=== PATIENT | female | born 1965 | race Caucasian/White ===

== ENCOUNTER → 2018-03-08 | Outpatient (CLI) | payer OTHER ==
--- NOTE | 2018-03-08 19:44 | CT ---
CT scan of the right ankle. History preop ankle fracture. Comparison none. TECHNIQUE: Multiple axial sections were obtained from the distal tibia to the bottom of the calcaneus with no co ntrast. FINDINGS: There is a vertical fracture through the distal tibia extending to the ankle joint. The fracture plan e is coronal. There is separation of the fragments almost 10 mm. There is comminution. There is no di slocation. The talus is intact. Calcaneus is intact. Subtalar joint appears normal. Fracture line als o extends into the medial malleolus. There is soft tissue swelling around the ankle. IMPRESSION: Comminuted vertical fracture in the coronal plane through the distal tibia. Mild separation of the fr agments. No other fracture seen. The fracture fragment displacement appears slightly worse than the c omparison plain film exam of 03/04/2018 through the splint.
== END | disposition home or self-care (01) ==
LOC: RADCTMAIN 18:54
PROVIDERS: ATTEND Orthopaedic Surgery
DX: S82.251A Displaced comminuted fracture of shaft of right tibia, initial encounter for closed fracture (principal)

== ENCOUNTER 2018-03-11 13:04 | Day surgery (SDC) | payer OTHER ==
[2018-03-11] MEDS ORDERED: LIDOCAINE 1% 20 ML VIAL (10MG/ML) FOR IV START INTRADERMA ONE (13:36)
[2018-03-11] MEDS ORDERED: LACTATED RINGERS 1,000 ML IV ONE ×2 (13:36→18:10)
[2018-03-11] MEDS ORDERED: DEXAMETHASONE SOD PHOS (MDV) 100 MG/10 ML VIAL IVP ONE (13:37)
[2018-03-11] MEDS ORDERED: ONDANSETRON 4 MG/2 ML VIAL IVP ONE ×2 (13:37→18:59)
[2018-03-11] MEDS: MIDAZOLAM 2 MG/2 ML VIAL IVP ONE ×2 (13:43→15:47)
[2018-03-11] MEDS ORDERED: VECURONIUM 10 MG VIAL IV ONE (16:06)
[2018-03-11] MEDS ORDERED: LIDOCAINE 1% INJ 10MG/ML (20 ML MDV) ONE (16:06)
[2018-03-11] MEDS ORDERED: SUCCINYLCHOLINE CHLORIDE 100 MG/5 ML SYR IV ONE (16:06)
[2018-03-11] MEDS ORDERED: GLYCOPYRROLATE 0.2 MG/ML 2 ML VIAL ONE (16:06)
[2018-03-11] MEDS ORDERED: MIDAZOLAM 2 MG/2 ML VIAL ONE (16:06)
[2018-03-11] MEDS ORDERED: fentaNYL (PF) 50 MCG/ML 2 ML AMP ONE (16:06)
[2018-03-11] MEDS ORDERED: HYDROmorphone (PF) 1 MG/ML ONE (16:06)
[2018-03-11] MEDS ORDERED: NEOSTIGMINE 1 MG/ML 10 ML VIAL ONE (16:06)
[2018-03-11] MEDS ORDERED: LABETALOL 5 MG/ML VIAL MDV ONE (16:06)
[2018-03-11] MEDS ORDERED: PROPOFOL 10 MG/ML 20 ML VIAL IV ONE (16:06)
[2018-03-11] MEDS ORDERED: SODIUM CHLORIDE 0.9% 50 ML with ceFAZolin 2,000 MG IV ONE ×2 (16:11)
[2018-03-11] MEDS ORDERED: HYDROmorphone 1 MG/ML 1 ML SYRINGE IVP ONE ×3 (18:59→19:19)
[2018-03-11] MEDS ORDERED: MEPERIDINE 50 MG/ML SYRINGE IVP ONE (19:07)
--- NOTE | 2018-03-11 19:20 | P.OP ---
Date of Procedure: 03/11/18 Preoperative Diagnosis: 1. Right distal tibial pilon fracture Postoperative Diagnosis: Same Procedure(s) Performed: Open reduction and internal fixation of right distal tibial pilon fracture Anesthesia: RANDI Surgeon: John Alvarado Metalizing Machine Operator #1: Rosibel Canseco Metalizing Machine Operator #2: Janelle Pham Estimated Blood Loss (ml): 10 IV fluids (ml): 850 Pathology: none sent Condition: stable Disposition: PACU Indications for Procedure: The patient is a previously healthy 52-year-old female who sustained a right distal tibia fracture on vacation in [facility] over a week ago. She returned home and was seen in our office. Her x-rays showed a distal tibia fracture. She was sent for a computed tomography scan and placed in a bulky Fortune splint. The computed tomography scan showed a displaced anterior plafond distal tibia fracture. My recommendation was to perform an open reduction and internal fixation to reduce the joint surface. My recommendation was to perform surgery through a true anterior incision so if the patient develops post traumatic arthritis the same incision could be used for a total ankle replacement or fusion. We also discussed using a medial incision to open the fracture and help with the reduction. We discussed the potential risks and complications of surgery including but not limited to risk of anesthesia, risk of superficial infection, risk of deep infection, risk of delayed wound healing , risk of superficial wound necrosis, risk of damage to local blood vessels or nerves, risk of fracture nonunion, risk of fracture malunion, risk of intraoperative fracture, risk of postoperative fracture, risk of posttraumatic arthritis, risk of symptomatically hardware, risk of chronic pain, risk of chronic swelling, inability to regain preinjury level of function, generalized to satisfaction with surgery, DVT, PE, and other medical complications, and possibly loss of life or limb. The patient and her voiced her understanding of the potential for developing posttraumatic arthritis. They provided their verbal and written consent to go forward with surgery. Description of Procedure: The patient was identified in preoperative holding and the correct right leg was marked with my initials. I reviewed the consent form with the patient and all of her questions were answered. A popliteal and saphenous nerve block was placed by anesthesia. The patient was then brought back to the operating room. She was positioned on the OR table and a general anesthetic and preoperative antibiotics were administered. All bony prominences were well-padded. A tourniquet was applied to the proximal aspect of the right thigh. The left leg was secured to the table with foam and tape. The right leg was then prepped and draped in the standard sterile fashion. Prior to starting surgery timeout was performed identifying the correct patient, operative extremity, and procedure. The patient's leg was then elevated, exsanguinated with an Esmarch bandage, and the tourniquet was inflated to 250 mmHg. I began by outlining incisions with a skin marker. A straight anterior incision was made directly over the anterior aspect of the ankle and a medial incision was made taking care to make a 5 cm skin bridge. The anterior incision was utilized first and a skin incision was made with a 15 blade scalpel. Dissection was carried down carefully through the subcutaneous tissue with tenotomy scissors. The superficial peroneal nerve was identified and carefully retracted. The extensor retinaculum was incised. I developed the interval between the tibialis anterior and the EHL tendon. The neurovascular bundle was carefully retracted laterally. Crossing veins were controlled with electrocautery. The ankle joint capsule was sharply opened and there was a large hemarthrosis. Attention was then turned medially. Skin incision was made with a scalpel and dissection was carried down carefully through subcutaneous tissue with tenotomy scissors. The fracture site was visible anteromedially extending down to the medial shoulder of the ankle joint. The fracture site was gently booked open and a pituitary rongeur was used to remove free osteoarticular fragments. Using a large [id number] reduction clamp 1 lino was placed over the anterior plafond and fragment and the second lino was placed through the medial incision over the posterior medial border of the tibia so a perpendicular vector would be created across the fracture. The reduction clamp was gently tightened. On inspection to the medial wound the fracture appeared to be anatomically reduced both at the level of the ankle joint and at the apex of the fracture. Fluoroscopy was brought in and on the lateral view the joint surface appeared to be nearly anatomic. A precontoured anterolateral plate was then selected. A medium Winters elevator was used to create a path up the anterolateral border of the tibia. The plate was then gently slid percutaneously up the anterolateral face of the tibia. Once the plate was in acceptable position it was pinned distally. A stab incision was made proximally in the drill bit was placed in the most proximal hole. A fully threaded 3.5 mm screw was placed proximally bringing the plate down to bone. I then proceeded to place 2 lag screws distally to the central 2 holes of the plate. A combination of a 3.5 and 2.5 mm drill bit was used and fully threaded 3.5 mm screws were placed generating excellent compression across the fracture. The jcodb-al-coxol reduction clamp was removed and the reduction held. I then placed two 3.5 locking screws in the remaining distal holes of the plate. I then proceeded to place an additional two 3.5 nonlocking screws proximally through stab incisions. Final fluoroscopic images were taken including an AP of the ankle which showed no displacement or step-offs of the medial malleolus and an anatomically reduced ankle joint. A true lateral of the ankle showed a reduced anterior plafond fracture with minimal step-off at the tibiotalar joint. The ankle joint was then irrigated. The capsule was closed with a running 0 Vicryl stitch. The extensor retinaculum was closed with a running 0 Vicryl stitch. The deep subcu was reapproximated with 2-0 Vicryl. The skin was closed using 3-0 nylon Allgower modification of the Donati stitch. The proximal stab incisions were closed with 3-0 nylon horizontal mattress stitches. The medial incision was closed in layers with 2-0 Vicryl in the subcu and 3-0 nylon horizontal mattress stitches and the skin. I verified that all instrument, sponge, and sharp counts were correct. A sterile dressing consisting of brown quarter inch stretchy Steri-Strips, Betadine soaked Adaptic , 4 x 4, and web roll was applied. The drapes were taken down and a well- padded bulky Fortune splint was placed with the ankle at neutral. I verified that all instrument, sponge, and sharp counts were correct. The patient was then awoken from her anesthetic, transferred from the OR table to a gurney, and brought to PACU having count the procedure well. Rosibel Canseco NP and Janelle SCHAFFER required a skilled assistance for patient positioning, surgical exposure, retraction, reduction of fracture, placement of hardware, closure of wounds, and application of splint. Plan: The patient is going to be admitted for pain control and postoperative antibiotics. She will receive Lovenox while in-house for DVT prophylaxis. She is to remain strictly nonweightbearing on her operative extremity. She'll be nonweightbearing for 10-12 weeks due to the intra-articular nature of her fracture. She can discharge home when her pain is controlled and she passes physical therapy.
[2018-03-11] MEDS ORDERED: DIAZEPAM 5 MG TAB PO PRN ×2 (19:23)
[2018-03-11] MEDS ORDERED: NA PHOS,M-B/NA PHOS,DI-BA 133 ML ENEMA RECTAL PRN (19:23)
[2018-03-11] MEDS ORDERED: HYDROmorphone 0.5 MG/0.5 ML SYRINGE IVP PRN ×3 (19:23)
[2018-03-11] MEDS ORDERED: ONDANSETRON 4 MG/2 ML VIAL IVP PRN (19:23)
[2018-03-11] MEDS ORDERED: NALOXONE 0.4 MG/ML 1 ML VIAL IV PRN (19:23)
[2018-03-11] MEDS ORDERED: MAGNESIUM HYDROXIDE 2,400 MG/10 ML CUP PO PRN (19:23)
[2018-03-11] MEDS ORDERED: BISACODYL 10 MG SUPP RECTAL PRN (19:23)
[2018-03-11] MEDS ORDERED: HYDROcodone/APAP 10-325MG 1 EACH TAB PO PRN ×2 (19:23)
[2018-03-11 19:32] VITALS: RESP 16
[2018-03-11] MEDS ORDERED: MIDAZOLAM 2 MG/2 ML VIAL IVP ONE ×2 (19:41)
[2018-03-11] MEDS ORDERED: SENNOSIDES-DOCUSATE SODIUM 1 EACH TAB PO SCH (21:00)
[2018-03-11] MEDS: hydrOXYzine PAMOATE 25 MG CAP PO PRN (22:39)
--- NOTE | 2018-03-11 23:16 | XR ---
Limited right ankle HISTORY: Open reduction internal fixation 6 intraoperative images document the procedure
--- NOTE | 2018-03-11 23:19 | FL ---
Fluoroscopy HISTORY: Fracture 1 minute 53 seconds fluoroscopy time supplied to the referring clinician. 6 intraoperative C-arm heike ges document the procedure. See dictated report from orthopedic surgery.
[2018-03-12] MEDS: SODIUM CHLORIDE 0.9% 1,000 ML IV SCH ×2 (00:09→12:25)
[2018-03-12] MEDS: ceFAZolin IN SWFI 2 GM/20 ML SYRINGE IVP SCH ×2 (00:09→07:35)
[2018-03-12 02:29] VITALS: BMI 28.8
[2018-03-12 05:54] VITALS: BP 151/86; PULSE 85; TEMP 97.8
[2018-03-12] MEDS: hydrOXYzine PAMOATE 25 MG CAP PO PRN ×2 (06:10→10:30)
[2018-03-12 08:04] LABS: Basophils # (A) 0.1 k/uL (0-0.2); Basophils % (A) 1 %; Eosinophils % (A) 0 %; HCT 39.2 % (34.0-46.0); HGB 13.1 gm/dL (11.4-16.0); Lymphocytes % (A) 9 %; MCH 30.6 pg (25.0-35.0); MCHC 33.3 g/dL (31.0-37.0); MCV 91.9 fL (80.0-100.0); Mean Platelet Volume 7.6; Monocytes # (A) 0.8 k/uL (0-1.0); Monocytes % (A) 8 %; Neutrophils # (A) 8.7 k/uL (1.3-7.7); Neutrophils % (A) 81 %; Platelet Count 329 k/uL (150-450); RBC 4.27 m/uL (3.80-5.40); WBC 10.7 k/uL (3.8-10.6)
[2018-03-12] MEDS ORDERED: oxyCODONE-APAP 5-325MG 1 EACH TAB PO PRN (08:53)
[2018-03-12] MEDS ORDERED: ENOXAPARIN 40 MG/0.4 ML SYRINGE SQ SCH (09:00)
--- NOTE | 2018-03-12 10:56 | P.ONQ ---
Anesthesiology Proc Note - PNB - Peripheral Nerve Block Performed Right Popliteal Single Time Out Performed: Yes Procedure Start Time: 14:47 Procedure Stop Time: 14:55 Indication: Acute Post-Operative Pain, Requested by physician Sedation Type: Sedate with meaningful contact maintained Preparation: Sterile Prep Needle Size: 50mm (2") Needle Gauge: 21 Technique: Ultrasound Injectate: 0.5% Ropivacaine (see comment for volume) (ropi .5% 30cc) Blood Aspirated: No Pain Paresthesia on Injection Noted: No Resistance on Injection: Normal Events: Uneventful and Well Tolerated
--- NOTE | 2018-03-12 11:08 | P.DS ---
Providers Date of admission: 03/11/2018 Expected date of discharge: 03/12/18 Attending physician: John Alvarado Primary care physician: Stated None Hospital Course: The patient was admitted yesterday and underwent operative fixation of a distal tibia fracture. She was given a popliteal nerve block for pain. She was admitted overnight for pain control and IV antibiotics. On postoperative day 2 she was doing well and had pain as expected in the right ankle. On exam she had a clean-appearing bulky Fortune splint and her foot was neurovascularly intact. There was no pain with passive range of motion of the toes. She denied chest pain, shortness of breath, nausea, or vomiting. She states that she was up with physical therapy and did well. She anticipates going home later this afternoon. She can discharge home when her pain is controlled with oral pain medications and she passes physical therapy. Patient Condition at Discharge: Stable Plan - Discharge Summary Discharge Rx Participant: Yes New Discharge Prescriptions: New Aspirin 325 mg PO BID #28 tab HYDROcodone/APAP 10-325MG [Oatman 10-325] 1 - 2 tab PO Q4-6H PRN #45 tab PRN Reason: Pain Sennosides [Senokot] 1 tab PO BID #60 tablet oxyCODONE-APAP 5-325MG [Percocet 5-325 mg] 1 tab PO Q6HR PRN #10 tab PRN Reason: Pain Discharge Medication List Aspirin 325 mg PO BID #28 tab 03/12/18 [Rx] HYDROcodone/APAP 10-325MG [Oatman 10-325] 1 - 2 tab PO Q4-6H PRN #45 tab [Rx] Sennosides [Senokot] 1 tab PO BID #60 tablet 03/12/18 [Rx] oxyCODONE-APAP 5-325MG [Percocet 5-325 mg] 1 tab PO Q6HR PRN #10 tab 03/12/18 [ Rx] Follow up Appointment(s)/Referral(s): John Alvarado MD [Medical Doctor] - 10 Days Patient Instructions/Handouts: ORIF of an Ankle Fracture (DC) Activity/Diet/Wound Care/Special Instructions: Strictly nonweightbearing to right lower extremity using a knee scooter. Keep splint clean, dry and intact. Rest and elevate the right lower extremity. Please take medications as prescribed. Please use Percocet for the first 1-2 days if needed, and Oatman only after that. Please follow-up with [facility] in 10 days. Call with any questions or concerns [phone]. Discharge Disposition: HOME SELF-CARE
--- NOTE | 2018-03-12 11:11 | P.PN ---
Subjective Progress Note Date: 03/12/18 The patient did well overnight and denies any chest pain or shortness of breath this morning. Her pain is controlled with Percocet. She has some discomfort but nothing out of control. She was up with therapy this morning and says she did well. Objective - Vital Signs Vital signs: Vital Signs Temp 97.8 F 03/12/18 05:54 Pulse 85 03/12/18 05:54 Resp 16 03/12/18 05:54 BP 151/86 03/12/18 05:54 Pulse Ox 95 03/12/18 05:54 Intake & Output 03/11/18 03/12/18 03/12/18 18:59 06:59 18:59 Intake Total 2100 Output Total 10 Balance 2089 Weight 90.718 kg 86.183 kg Intake: IV 2100 Output: Estimated Blood Loss 10 Other: Voiding Method Bedpan # Voids 1 - Exam A focused examination of the right lower extremity was conducted. On inspection there is a clean-appearing bulky Fortune splint. There is no bleeding or drainage. The tips of the toes are warm and well perfused with brisk capillary refill. Sensation is intact to light touch at the tips of the toes. There is no pain with passive range of motion of the toes. - Labs CBC & Chem 7: 03/12/18 06:55 Labs: Abnormal Lab Results - Last 24 Hours (Table) 03/12/18 Range/Units 06:55 WBC 10.7 H (3.8-10.6) k/uL Neutrophils # 8.7 H (1.3-7.7) k/uL Assessment and Plan (1) Pilon fracture of right tibia Current Visit: Yes Status: Acute Code(s): S82.871A - DISPLACED PILON FRACTURE OF RIGHT TIBIA, INIT FOR CLOS FX SNOMED Code(s): 013884233 Plan: Postoperative day #1 status post open reduction and internal fixation of a right distal tibia fracture. 1. Strict nonweightbearing right lower extremity, ice and elevate 2. 2 doses of postoperative antibiotics 3. DVT prophylaxis with Lovenox in-house, home on aspirin 325 mg twice a day 4. Physical therapy for gait training and mobilization 5. Bone health labs pending 6. Anticipate discharge home later this afternoon if pain is controlled oral pain medications and the patient passes physical therapy
[2018-03-12] MEDS ORDERED: ACETAMINOPHEN TAB 325 MG TAB PO PRN (11:39)
== END 2018-03-12 15:49 | disposition home or self-care (01) ==
LOC: OR 13:04 → 5MS5E 18:51 → OR 03-12 15:49
PROVIDERS: ATTEND Orthopaedic Surgery
DX: S82.871A Displaced pilon fracture of right tibia, initial encounter for closed fracture (principal); X58.XXXA Exposure to other specified factors, initial encounter; Y93.11 Activity, swimming; Y92.34 Swimming pool (public) as the place of occurrence of the external cause; K21.9 Gastro-esophageal reflux disease without esophagitis; Z79.891 Long term (current) use of opiate analgesic; Z79.899 Other long term (current) drug therapy
CPT/HCPCS: 97161; 85025; 82306; 73600; 27827; 64450; C1713; J2250; J2710; J2175; J2405; J2001; J1650; J3010; J1170 ×2; J0690 ×2; J1100; J0330; J2704

== ENCOUNTER 2019-03-01 07:27 | Day surgery (SDC) | payer OTHER ==
[2019-02-27 09:43] VITALS: BMI 29.7
--- NOTE | 2019-02-28 22:12 | P.GSHP ---
History of Present Illness H&P Date: 03/01/19 CHIEF COMPLAINT: Colon screen HISTORY OF PRESENT ILLNESS: The patient is a 53-year-old female who presents for colon screen. Lower endoscopy was offered for further evaluation and management. PAST MEDICAL HISTORY: Please see list. PAST SURGICAL HISTORY: Please see list. MEDICATIONS: Please see list. ALLERGIES: Please see list. SOCIAL HISTORY: No illicit drug use FAMILY HISTORY: No reports of Crohn disease or ulcerative colitis. REVIEW OF ORGAN SYSTEMS: CONSTITUTIONAL: No reports of fevers or chills. PHYSICAL EXAM: VITAL SIGNS: Stable GENERAL: Well-developed pleasant in no acute distress. HEENT: No scleral icterus. Extraocular movements grossly intact. Moist buccal mucosa. NECK: Supple without lymphadenopathy. CHEST: Unlabored respirations. Equal bilateral excursions. CARDIOVASCULAR: Regular rate and rhythm. Distal 2+ pulses. ABDOMEN: Soft, nontender, nondistended. MUSCULOSKELETAL: No clubbing, cyanosis, or edema. ASSESSMENT: 1. Colon screen. PLAN: 1. Recommend proceeding with a lower endoscopy Past Medical History Past Medical History: No Reported History Additional Past Medical History / Comment(s): constipation History of Any Multi-Drug Resistant Organisms: None Reported Past Surgical History: Orthopedic Surgery Additional Past Surgical History / Comment(s): vaginal sling 2002, rt ankle surgery with plate Past Anesthesia/Blood Transfusion Reactions: No Reported Reaction Smoking Status: Never smoker - Past Family History Father Family Medical History: Liver Disease Additional Family Medical History / Comment(s): CROHNS, LIVER DISEASE. 05/2017 Mother Family Medical History: No Reported History Sister(s) Family Medical History: Cancer Additional Family Medical History / Comment(s): BREAST CANCER Medications and Allergies Home Medications Medication Instructions Recorded Confirmed Type Cholecalciferol (Vitamin D3) 5,000 unit PO DAILY 02/27/19 02/27/19 History [Vitamin D3] Constipation Med (Unknown Dose 1 dose PO DAILY 02/27/19 02/27/19 History Allergies Allergy/AdvReac Type Severity Reaction Status Date / Time No Known Allergies Allergy Verified 02/27/19 09:33
[~2019-03-01 07:27] MED LIST: LACTATED RINGERS 1,000 ML IV SCH; LIDOCAINE 1% 20 ML VIAL (10MG/ML) FOR IV START INTRADERMA PRN
[2019-03-01 07:51] VITALS: TEMP 97.3
[2019-03-01] MEDS ORDERED: LIDOCAINE 1% INJ 10MG/ML (20 ML MDV) ONE (08:02)
[2019-03-01] MEDS ORDERED: PROPOFOL 10 MG/ML 20 ML VIAL IV ONE (08:02)
--- NOTE | 2019-03-01 08:37 | P.PCN ---
Date of Procedure: 03/01/19 Description of Procedure: PREOPERATIVE DIAGNOSIS: Colonoscopy screening. POSTOPERATIVE DIAGNOSIS: Colonoscopy screening. OPERATION: Colonoscopy to the ileocecal valve and appendiceal orifice. SURGEON: Melissa Gutiérrez MD. ANESTHESIA: MAC. INDICATIONS: The patient is a 53-year-old female who presents for first colonoscopy screening. Benefits and risks were described and informed consent was obtained. DESCRIPTION OF PROCEDURE: The patient had undergone Suprep. Separately she reports difficulty with her prep. She had been brought into the operating room and laid in the left lateral decubitus position. After adequate intravenous sedation, the rectum was examined with 2% lidocaine jelly. External hemorrhoids were encountered. The rectal tone was within normal limits. No lesions were palpated in the rectal vault. An Olympus colonoscope was advanced until the ileocecal valve and appendiceal orifice were clearly viewed. The prep was suboptimal limiting complete visualization of each mucosal fold. No scattered diverticulosis was encountered. No large colonic polyps were found. No evidence of focal colitis was found. Retroflexion of the scope demonstrated grade 1 internal hemorrhoids without active bleeding or inflammation. The colon was desufflated. The patient had tolerated the procedure well. Withdrawal time was over 6 minutes. FINDINGS: Aronchick preparation quality scale 4 (1-5) Internal hemorrhoids, grade 1 External prolapsed hemorrhoids. No arteriovenous malformations. No adenomatous polyps. No focal colitis. No scattered diverticulosis RECOMMENDATIONS: Lower endoscopy in 5 years, 2023 Plan - Discharge Summary Discharge Rx Participant: No New Discharge Prescriptions: No Action Constipation Med (Unknown Dose 1 dose PO DAILY Cholecalciferol (Vitamin D3) [Vitamin D3] 5,000 unit PO DAILY Eszopiclone [Lunesta] 3 mg PO HS PRN PRN Reason: Insomnia Linaclotide [Linzess] 290 mcg PO DAILY Discharge Medication List Cholecalciferol (Vitamin D3) [Vitamin D3] 5,000 unit PO DAILY 02/27/19 [History] Constipation Med (Unknown Dose 1 dose PO DAILY 02/27/19 [History] Eszopiclone [Lunesta] 3 mg PO HS PRN 03/01/19 [History] Linaclotide [Linzess] 290 mcg PO DAILY 03/01/19 [History] Follow up Appointment(s)/Referral(s): Melissa Gutiérrez MD [STAFF PHYSICIAN] - 03/21/19 Patient Instructions/Handouts: *Surgery [facility] - (Anesthesia) Endoscopy Discharge Instructions, Colonoscopy (DC), Constipation (DC) Activity/Diet/Wound Care/Special Instructions: Follow-up colonoscopy in 5 years, 2023. Prep subpar. Recommend drinking 80 to 100 ounces of fluid/water daily. Discharge Disposition: HOME SELF-CARE
[2019-03-01 08:38] VITALS: RESP 16
[2019-03-01 09:00] VITALS: BP 120/70; PULSE 67
== END 2019-03-01 09:28 | disposition home or self-care (01) ==
LOC: ORWHC2ENDO 07:27
PROVIDERS: ATTEND Surgery Plastic and Reconstructive Surgery
DX: Z12.11 Encounter for screening for malignant neoplasm of colon (principal); K59.00 Constipation, unspecified; Z80.3 Family history of malignant neoplasm of breast; K64.4 Residual hemorrhoidal skin tags; K64.8 Other hemorrhoids
CPT/HCPCS: G0121; J2001; J2704; 45378

== ENCOUNTER → 2019-05-01 | Outpatient (CLI) | payer OTHER ==
--- NOTE | 2019-05-01 17:38 | ECHOF ---
Referral Reason:R55 syncope and collapse, R09.89 other specified s MEASUREMENTS -------- HEIGHT: 172.7 cm WEIGHT: 84.4 kg BP: 129/62 RVIDd: 2.5 cm (< 3.3) IVSd: 1.2 cm (0.6 - 1.1) LVIDd: 4.0 cm (3.9 - 5.3) LVPWd: 1.2 cm (0.6 - 1.1) IVSs: 1.5 cm LVIDs: 2.5 cm LVPWs: 1.7 cm LA Diam: 3.1 cm (2.7 - 3.8) LAESV Index (A-L): 20.84 ml/m Ao Diam: 2.7 cm (2.0 - 3.7) AV Cusp: 1.6 cm (1.5 - 2.6) EPSS: 0.3 cm MV E Desean: 1.06 m/s MV DecT: 259 ms MV A Desean: 0.86 m/s MV E/A Ratio: 1.23 RAP: 5.00 mmHg RVSP: 22.75 mmHg MV EF SLOPE: 70.26 mm/s (70 - 150) MV EXCURSION: 1.44 cm (> 18.000) FINDINGS -------- Sinus rhythm. This was a technically adequate study. The left ventricular size is normal. There is borderline concentric left ventricular hypertrophy. Overall left ventricular systolic function is normal with, an EF between 60 - 65 %. The right ventricle is normal in size. Left atrium is normal size by volume. The right atrium is normal in size and function. Interatrial and interventricular septum intact. The aortic valve is trileaflet and appears structurally normal. There is trace to mild mitral regurgitation. Mild tricuspid regurgitation present. Right ventricular systolic pressure is normal at < 35 mmHg. Trace/mild (physiologic) pulmonic regurgitation. The aortic root size is normal. Normal inferior vena cava with normal inspiratory collapse consistent with estimated right atrial pre ssure of 5 mmHg. There is no pericardial effusion. CONCLUSIONS -------- 1. Sinus rhythm. 2. This was a technically adequate study. 3. The left ventricular size is normal. 4. There is borderline concentric left ventricular hypertrophy. 5. Overall left ventricular systolic function is normal with, an EF between 60 - 65 %. 6. The right ventricle is normal in size. 7. Left atrium is normal size by volume. 8. The right atrium is normal in size and function. 9. Interatrial and interventricular septum intact. 10. The aortic valve is trileaflet and appears structurally normal. 11. There is trace to mild mitral regurgitation. 12. Mild tricuspid regurgitation present. 13. Right ventricular systolic pressure is normal at < 35 mmHg. 14. Trace/mild (physiologic) pulmonic regurgitation. 15. The aortic root size is normal. 16. Normal inferior vena cava with normal inspiratory collapse consistent with estimated right atrial pressure of 5 mmHg. 17. There is no pericardial effusion. SUPERVISOR CARDING: REI Lopez
--- NOTE | 2019-05-01 19:47 | US ---
EXAMINATION TYPE: US carotid duplex BILAT DATE OF EXAM: 05/01/2019 COMPARISON: NONE CLINICAL HISTORY: 53-year-old female R55 syncope and collapse, R09.89 other specified : HTN is newly diagnosed TECHNIQUE: Carotid duplex ultrasound examination. Indirect Doppler criteria was utilized. FINDINGS: EXAM MEASUREMENTS: RIGHT: Peak Systolic Velocity (PSV) cm/sec ----- Right CCA: 79.1 ----- Right ICA: 78.2 ----- Right ECA: 88.9 ICA/CCA ratio: 1.0 RIGHT: End Diastole cm/sec ----- Right CCA: 27.3 ----- Right ICA: 32.8 ----- Right ECA: 15.0 LEFT: Peak Systolic Velocity (PSV) cm/sec ----- Left CCA: 79.8 ----- Left ICA: 86.3 ----- Left ECA: 55.2 ICA/CCA ratio: 1.1 LEFT: End Diastole cm/sec ----- Left CCA: 26.7 ----- Left ICA: 38.3 ----- Left ECA: 0.0 VERTEBRALS (direction of flow): Right Vertebral: Antegrade Left Vertebral: Antegrade Rhythm: Normal Garage Supervisor notes: Mild intimal wall thickening is noted at bilateral carotid bifurcation, and PSV is wnl bilaterally. IMPRESSION: No hemodynamically significant ICA stenosis on either side. Criteria for Assigning % of Stenosis / Diameter reduction (Estimation based on the indirect measurements of the internal carotid artery velocities (ICA PSV). 1. Normal (no stenosis)=ICA PSV < 125 cm/s: ratio < 2.0: ICA EDV<40 cm/s. 2. Less than 50% stenosis=ICA PSV < 125 cm/s: ratio < 2.0: ICA EDV<40 cm/s. 3. 50 to 69% stenosis=ICA PSV of 125 to 230 cm/s: ration 2.0 ? 4.0: ICA EDV 40-100 cm/s. 4. Greater than 70% stenosis to near occlusion= ICA PSV > 230 cm/s: ratio > 4.0: ICA EDV > 100 cm/s. 5. Near occlusion= ICA PSV velocities may be low or undetectable: variable ratio and ICA EDV. 6. Total occlusion=unable to detect flow.
== END | disposition home or self-care (01) ==
LOC: RADECHMAIN 15:41
PROVIDERS: ATTEND Family Medicine
DX: I07.1 Rheumatic tricuspid insufficiency (principal); R09.89 Other specified symptoms and signs involving the circulatory and respiratory systems
CPT/HCPCS: 93306; 93880

== ENCOUNTER → 2019-08-04 | Outpatient (CLI) | payer OTHER ==
--- NOTE | 2019-08-18 12:27 | MM ---
Reason for exam: screening (asymptomatic). Last mammogram was performed 6 years and 5 months ago. History: Patient had first child at age 31. Family history of breast cancer in sister at age 53. Physical Findings: A clinical breast exam by your physician is recommended on an annual basis and results should be correlated with mammographic findings. MG 3D Screening Mammo W/Cad Bilateral CC and MLO view(s) were taken. Prior study comparison: March 07, 2013, mammogram, performed at [facility]. The breast tissue is heterogeneously dense. This may lower the sensitivity of mammography. No significant changes when compared with prior studies. ASSESSMENT: Benign, BI-RAD 2 RECOMMENDATION: Routine screening mammogram of both breasts in 1 year.
== END | disposition home or self-care (01) ==
LOC: RADMAMWWP 13:07
PROVIDERS: ATTEND Family Medicine
DX: Z12.31 Encounter for screening mammogram for malignant neoplasm of breast (principal)
CPT/HCPCS: 77063; 77067

== ENCOUNTER 2019-12-19 11:23 | Emergency (ER) | payer OTHER ==
[2019-12-19 11:28] VITALS: TEMP 97.9
--- NOTE | 2019-12-19 11:47 | XR ---
EXAMINATION TYPE: XR knee complete LT DATE OF EXAM: 12/19/2019 COMPARISON: NONE HISTORY: 54 year-old female left knee pain TECHNIQUE: 3 views FINDINGS: Extensor mechanism is intact. No knee joint effusion. Mild degenerative spurring in the patellofemora l compartment. No acute fracture, subluxation, or dislocation. IMPRESSION: No acute osseous abnormality seen. Mild degenerative spurring in the patellofemoral compartment.
[2019-12-19] MEDS ORDERED: ACET/COD 300 MG/30 MG STARTER PACK 6 TAB BTL PO STA (11:50)
--- NOTE | 2019-12-19 11:51 | ED ---
Extremity Problem HPI - General Chief complaint: Extremity Problem,Nontraumatic Stated complaint: knee pain Time Seen by Provider: 12/19/19 11:28 Source: patient Mode of arrival: wheelchair Limitations: no limitations - History of Present Illness Initial comments: 54-year-old female presenting today for chief complaint of left knee pain she states has been ongoing for the past 2 weeks. She states she did recently by a puppy and has been walking much more frequently. Patient states today while walking her knee locked up she was unable to walk. Patient denies any falls or direct trauma. Patient has a redness or swelling of the knee. Patient denies any fevers or recent surgical procedures. Patient denies any previous left knee injuries. Patient denies any numbness tingling or loss of sensation posterior knee pain. Patient denies coolness or pallor of the extremity. Patient denies noting any other complaints. Upon arrival patient appears well there is no signs of acute distress. - Related Data Home Medications Medication Instructions Recorded Confirmed Cholecalciferol (Vitamin D3) 5,000 unit PO DAILY 02/27/19 03/01/19 [Vitamin D3] Constipation Med (Unknown Dose 1 dose PO DAILY 02/27/19 02/27/19 Eszopiclone [Lunesta] 3 mg PO HS PRN 03/01/19 03/01/19 Linaclotide [Linzess] 290 mcg PO DAILY 03/01/19 03/01/19 Allergies Allergy/AdvReac Type Severity Reaction Status Date / Time No Known Allergies Allergy Verified 03/01/19 07:46 Review of Systems ROS Statement: Those systems with pertinent positive or pertinent negative responses have been documented in the HPI. ROS Other: All systems not noted in ROS Statement are negative. Past Medical History Past Medical History: No Reported History Additional Past Medical History / Comment(s): constipation History of Any Multi-Drug Resistant Organisms: None Reported Past Surgical History: Orthopedic Surgery Additional Past Surgical History / Comment(s): vaginal sling 2002, rt ankle surgery with plate Past Anesthesia/Blood Transfusion Reactions: No Reported Reaction Past Psychological History: No Psychological Hx Reported Smoking Status: Never smoker Past Alcohol Use History: Occasional Past Drug Use History: None Reported - Past Family History Father Family Medical History: Liver Disease Additional Family Medical History / Comment(s): CROHNS, LIVER DISEASE. 05/2017 Mother Family Medical History: No Reported History Sister(s) Family Medical History: Cancer Additional Family Medical History / Comment(s): BREAST CANCER General Exam - General Exam Comments Initial Comments: General: The patient is awake and alert, in no distress, and does not appear acutely ill. Eye: +3 mm pupils are equal, round and reactive to light, extra-ocular movements are intact. No nystagmus. There is normal conjunctiva bilaterally. No signs of icterus. Musculoskeletal: Normal ROM, at the left and right hips, right knee and ankle, she can range fully but complains of pain at the left knee. Patient has full ROM at the rigth ankle. Extensor mechanism intact. No swelling, no redness no warmth or skin changes of the left knee. Strength 5/5 of the LE b/l distal and proximal to left knee joint. Sensation intact. +2 DP pulses equal bilaterally 2+. Neurological: A&O x 3. CN II-XII intact grossly, There are no obvious motor or sensory deficits. Coordination appears grossly intact. Speech is normal. Skin: Skin is warm and dry and no rashes or lesions are noted. Psychiatric: Cooperative, appropriate mood & affect, normal judgment. Limitations: no limitations Course Vital Signs 12/19/19 12/19/19 12/19/19 11:25 11:27 12:27 Temperature 97.9 F Pulse Rate 71 65 Respiratory 19 18 20 Rate Blood Pressure 133/86 130/81 O2 Sat by Pulse 97 98 Oximetry 12/19/19 12:35 Temperature Pulse Rate 65 Respiratory 20 Rate Blood Pressure 130/81 O2 Sat by Pulse 98 Oximetry Medical Decision Making - Medical Decision Making 54-year-old female presenting for left knee pain. There is no obvious abnormalities noted on gross examination. There is no noted laxity. Patient is neurovascularly intact. There is no injury or direct trauma. There is no sign suggestive of a vascular injury nor infection at this time given physical examination and patient's presenting history. Patient was able to weight-bear and stand at bedside. Patient extensor mechanism intact. Plain films (-). There is no obvious sign of severe ligamentous injury however this cannot be ruled out with plain films. Nor can meniscus injury be ruled out with plain films. I recommend that patient nonweight bear, use a knee immobilizer while ambulating and f/u with orthopedic surgery. I did discuss MRI as a more sensitive study for knee injuries/disease. patient was upset she could not receive an MRI in ER, nor that I could fix the knee in the ER. Patient called Dr. Alvarado office and was scheduled for 1245 this afternoon. Patient discharged appearing well after discussing case with Dr. Chávez. Disposition Clinical Impression: Left knee pain Disposition: HOME SELF-CARE Condition: Good Instructions (If sedation given, give patient instructions): Knee Pain (ED) Additional Instructions: Please use medication as discussed. Please follow-up with family doctor in the next 2 days, and orthopedic surgeon in the next week. Please use crutches and knee immobilizer for ambulation, however I recommend when not ambulating to take the knee from brace, and range at the knee without weight bearing, multiple times a day and do not wear the brace at night. Please return to emergency room if the symptoms increase or worsen or for any other concerns. Is patient prescribed a controlled substance at d/c from ED?: No Referrals: Jas Mcfarland DO [Primary Care Provider] - 1-2 days John Alvaardo MD [Medical Doctor] - 1-2 days Time of Disposition: 11:49
[2019-12-19 12:36] VITALS: BP 130/81; PULSE 65; RESP 20
[2019-12-19 20:59] LABS: Appearance,BF Cloudy; Color,BF Pink; Nucleated Cells, Body Fluid 19 /uL; RBC, Body Fluid 5995 /uL
== END 2019-12-19 12:38 | disposition home or self-care (01) ==
LOC: EC 11:23
DX: M25.562 Pain in left knee (principal); Z79.899 Other long term (current) drug therapy
CPT/HCPCS: 87070; 87075; 87205; 89050; 89060; 99283

== ENCOUNTER 2020-01-02 23:40 | Emergency (ER) | payer OTHER ==
[2020-01-02 23:51] VITALS: RESP 18; TEMP 98.2
--- NOTE | 2020-01-03 00:26 | ED ---
Extremity Problem HPI - General Chief complaint: Extremity Problem,Nontraumatic Stated complaint: L Leg Pain Time Seen by Provider: 01/02/20 23:59 Source: patient, RN notes reviewed, old records reviewed Mode of arrival: ambulatory Limitations: no limitations - History of Present Illness Initial comments: Patient is a 34-year-old female presents emergency department today with chief complaint of left calf pain and lower extremity swelling. Patient reports that she was seen approximately 2 weeks ago with complaints of pain with ambulation over the left knee. She reports she followed up after normal x-rays and was sent to orthopedics. They plan to do an MRI. She called her safety specialist this afternoon with complaints of worsening pain and swelling to the leg and calf. He sent her here for further evaluation for possible DVT. Patient denies any chest pain or shortness of breath. - Related Data Home Medications Medication Instructions Recorded Confirmed Cholecalciferol (Vitamin D3) 5,000 unit PO DAILY 02/27/19 01/02/20 [Vitamin D3] Eszopiclone [Lunesta] 3 mg PO HS PRN 03/01/19 01/02/20 Linaclotide [Linzess] 290 mcg PO DAILY 03/01/19 01/02/20 Allergies Allergy/AdvReac Type Severity Reaction Status Date / Time No Known Allergies Allergy Verified 01/02/20 23:51 Review of Systems ROS Statement: Those systems with pertinent positive or pertinent negative responses have been documented in the HPI. ROS Other: All systems not noted in ROS Statement are negative. Past Medical History Past Medical History: No Reported History Additional Past Medical History / Comment(s): constipation History of Any Multi-Drug Resistant Organisms: None Reported Past Surgical History: Orthopedic Surgery Additional Past Surgical History / Comment(s): vaginal sling 2002, rt ankle surgery with plate Past Anesthesia/Blood Transfusion Reactions: No Reported Reaction Past Psychological History: No Psychological Hx Reported Smoking Status: Never smoker Past Alcohol Use History: Occasional Past Drug Use History: None Reported - Past Family History Father Family Medical History: Liver Disease Additional Family Medical History / Comment(s): CROHNS, LIVER DISEASE. 05/2017 Mother Family Medical History: No Reported History Sister(s) Family Medical History: Cancer Additional Family Medical History / Comment(s): BREAST CANCER General Exam - General Exam Comments Initial Comments: 54 -year-old female. Alert and oriented. No distress. Limitations: no limitations General appearance: alert, in no apparent distress Head exam: Present: atraumatic, normocephalic, normal inspection Eye exam: Present: normal appearance, PERRL, EOMI. Absent: scleral icterus, conjunctival injection, periorbital swelling ENT exam: Present: normal exam, mucous membranes moist Neck exam: Present: normal inspection Respiratory exam: Present: normal lung sounds bilaterally. Absent: respiratory distress, wheezes, rales, rhonchi, stridor Cardiovascular Exam: Present: regular rate, normal rhythm, normal heart sounds. Absent: systolic murmur, diastolic murmur, rubs, gallop, clicks GI/Abdominal exam: Present: soft, normal bowel sounds. Absent: distended, tenderness, guarding, rebound, rigid Extremities exam: Present: normal inspection, full ROM, normal capillary refill. Absent: tenderness, pedal edema, joint swelling, calf tenderness Left Upper Leg exam: Present: normal inspection, full ROM Knee exam: Present: normal inspection, full ROM, tenderness (and swelling over medial knee and posterior calf ) Lower Leg exam: Present: normal inspection, full ROM, tenderness (over calf) Ankle exam: Present: full ROM, swelling. Absent: normal inspection Foot/Toe exam: Present: normal inspection, full ROM Neurovascular tendon exam: Present: no vascular compromise Gait: observed and normal Back exam: Present: normal inspection Neurological exam: Present: alert, oriented X3, CN II-XII intact Psychiatric exam: Present: normal affect, normal mood Skin exam: Present: warm, dry, intact, normal color. Absent: rash Course Vital Signs 01/02/20 01/03/20 23:42 01:15 Temperature 98.2 F Pulse Rate 73 66 Respiratory 18 18 Rate Blood Pressure 173/97 134/81 O2 Sat by Pulse 98 97 Oximetry Medical Decision Making - Medical Decision Making 54-year-old female presents with worsening pain and swelling to the posterior knee over the past few days. She was playing with Dr. Alvarado from orthopedic to sent her in for further evaluation and rule out blood clot. Ultrasound was completed and shows evidence of a Mcdonald's cyst measuring 3 cm x 6 cm. No evidence of DVT. Patient informed of these results. She is quite upset that this seemed to occur suddenly cannot remember an injury. She reports that she was walking frequently prior to all this starting 2-3 weeks ago. Patient was advised that she needs follow-up back with orthopedics for possible repeat drainage but as with most Mcdonald's cyst that could likely recur with swelling after drainage again. Patient was advised to take anti-inflammatory medicine use crutches and follow-up with orthopedic. - Radiology Data Radiology results: report reviewed Ultrasound is negative for DVT in the left leg. There is a 6 x 3 cm popliteal cyst. Disposition Clinical Impression: Bakers cyst Disposition: HOME SELF-CARE Condition: Good Instructions (If sedation given, give patient instructions): Bakers Cyst (ED) Is patient prescribed a controlled substance at d/c from ED?: No Referrals: Jas Mcfarland DO [Primary Care Provider] - 1-2 days Time of Disposition: 01:34
--- NOTE | 2020-01-03 01:16 | US ---
EXAMINATION TYPE: US venous doppler duplex LE LT DATE OF EXAM: 01/03/2020 12:47 AM COMPARISON: NONE CLINICAL HISTORY: r/o clot. SIDE PERFORMED: Left TECHNIQUE: The lower extremity deep venous system is examined utilizing real time linear array sonog dana with graded compression, doppler sonography and color-flow sonography. VESSELS IMAGED: External Iliac Vein (EIV) Common Femoral Vein Deep Femoral Vein Greater Saphenous Vein * Femoral Vein Popliteal Vein Small Saphenous Vein * Proximal Calf Veins (* superficial vessels) Left Leg: IMPRESSION: No evidence of deep vein thrombosis in the left leg. There is 6 x 3 cm popliteal cyst.
[2020-01-03 01:21] VITALS: BP 134/81; PULSE 66
== END 2020-01-03 01:42 | disposition home or self-care (01) ==
LOC: EC 23:40
DX: M71.22 Synovial cyst of popliteal space [Baker], left knee (principal); K59.00 Constipation, unspecified; Z79.899 Other long term (current) drug therapy
CPT/HCPCS: 99284

== ENCOUNTER → 2020-01-11 | Outpatient (CLI) | payer OTHER ==
--- NOTE | 2020-01-11 12:21 | MR ---
EXAMINATION TYPE: MR knee LT wo con DATE OF EXAM: 01/11/2020 COMPARISON: Left knee x-ray December 19, 2019 HISTORY: Lt knee pain, effusion, and unilateral primary osteoarthritis. TECHNIQUE: Multiplanar, multisequence images of the knee is performed without IV contrast. FINDINGS: MEDIAL MENISCUS: Anterior horn is intact without tear. Posterior horn shows irregular increased signa l likely oblique linear extension into inferior articular surface sagittal image 24. LATERAL MENISCUS: Anterior and posterior horns are intact without tear. CRUCIATE LIGAMENTS: The anterior and posterior cruciate ligaments are intact and unremarkable. COLLATERAL LIGAMENTS: The medial collateral ligament and lateral collateral ligament complex are inta ct. Fluid signal surrounds the medial collateral ligament especially distal fibers. EXTENSOR MECHANISM: Visualized quadriceps and patellar tendons are intact. EFFUSION: There is large suprapatellar joint effusion. POPLITEAL CYST: Fairly moderate sized popliteal/st cyst at 5.6 cm long axis sagittal image 22. Ill -defined fluid extends inferiorly and laterally. TRICOMPARTMENT SPACES: Moderate patellofemoral and medial tibiofemoral compartment narrowing with mil d spurring patellofemoral compartment. CARTILAGE: Areas of full-thickness chondromalacia patella posterior patellar pole. Additional cartila ginous loss and fissuring medial tibiofemoral compartment. BONE MARROW SIGNAL: Areas of reactive increased T2 signal medial tibial femoral compartment greatest over distal femur with small areas of low T1 signal at areas of most prominent cartilaginous loss. Si milar finding areas of diminished T1 and increased T2 signal posterior patellar pole at site of most prominent chondromalacia patella. OTHER: No additional significant abnormality is appreciated. IMPRESSION: 1. Moderate to advanced tricompartment degenerative changes greatest medial tibiofemoral and patellof emoral compartment as detailed above. 2. Large suprapatellar joint effusion. 3. Moderate size nonsimple leaking popliteal cyst. 4. Suspected full-thickness tear posterior horn medial meniscus. 5. Mild MCL sprain injury.
== END | disposition home or self-care (01) ==
LOC: RADMRIMAIN 11:12
PROVIDERS: ATTEND Orthopaedic Surgery
DX: M17.12 Unilateral primary osteoarthritis, left knee (principal); S83.412A Sprain of medial collateral ligament of left knee, initial encounter

== ENCOUNTER → 2020-08-16 | Outpatient (CLI) | payer OTHER ==
--- NOTE | 2020-08-19 08:41 | MM ---
Reason for exam: screening (asymptomatic). Last mammogram was performed 1 year ago. History: Patient is postmenopausal and had first child at age 31. Family history of breast cancer in sister at age 53 and breast cancer in maternal aunt. Physical Findings: A clinical breast exam by your physician is recommended on an annual basis and results should be correlated with mammographic findings. MG 3D Screening Mammo W/Cad Bilateral CC and MLO view(s) were taken. Prior study comparison: August 04, 2019, bilateral MG 3d screening mammo w/cad. March 07, 2013, mammogram, performed at [facility]. The breast tissue is heterogeneously dense. This may lower the sensitivity of mammography. There is no discrete abnormality. ASSESSMENT: Negative, BI-RAD 1 RECOMMENDATION: Routine screening mammogram of both breasts in 1 year.
== END | disposition home or self-care (01) ==
LOC: RADMAMWWP 10:11
PROVIDERS: ATTEND Family Medicine
DX: Z12.31 Encounter for screening mammogram for malignant neoplasm of breast (principal)
CPT/HCPCS: 77063; 77067

== ENCOUNTER → 2021-04-22 | Outpatient (CLI) | payer OTHER ==
--- NOTE | 2021-04-22 17:55 | XR ---
Lumbar spine and bilateral hips HISTORY: M 25.551 3 views of the lumbar spine, frontal view of the pelvis and 2 views of each hip for total of 8 images . No comparisons Lumbar spine shows preserved height, near anatomic alignment, bone mineralization may be mildly reduc ed. Some loss of disc height is greatest at L4-5, there is multilevel spondylosis. Minimal anterolist hesis grade 1 L3-4. Sclerosis present posterior elements of the lower lumbar spine. The hips show normal alignment, joint spaces, bone mineralization. No fracture or dislocation. IMPRESSION: Degenerative disc disease and facet arthropathy in the lumbar spine. Normal hips. MRI may be of benefit.
== END | disposition home or self-care (01) ==
LOC: RADXRMAIN 16:19
PROVIDERS: ATTEND Nurse Practitioner Family
DX: M51.36 Other intervertebral disc degeneration, lumbar region (principal); M47.816 Spondylosis without myelopathy or radiculopathy, lumbar region
CPT/HCPCS: 72100; 73521

== ENCOUNTER → 2021-06-07 | Outpatient (CLI) | payer OTHER ==
--- NOTE | 2021-06-07 13:42 | MR ---
EXAMINATION TYPE: MR lumbar spine wo con DATE OF EXAM: 06/07/2021 COMPARISON: None HISTORY: LBP, BLE radic x 6 mos. TECHNIQUE: Multiplanar, multisequence images of the lumbar spine were acquired without IV contrast. Findings: The lumbar vertebral segments are normal in height and alignment and there is no fracture or subluxat ion. The disc spaces are well-maintained in height with no significant degenerative disc disease. There is a small focal disc protrusion/herniation of the L4-5 disc to the right of midline compromisi ng the right lateral recess. There is mild to moderate facet arthropathy from L3 through S1. There is no spinal stenosis. The paraspinal soft tissues are unremarkable. The neuroforamina are patent. IMPRESSION: 1. No lumbar spine fracture or malalignment. 2. No significant degenerative disease. 3. Small focal disc protrusion/herniation at the L4-5 level on the right as described above. 4. Mild to moderate osteophytic change of the facets from L3 through S1. 4. No spinal stenosis.
== END | disposition home or self-care (01) ==
LOC: RADMRIMAIN 12:58
PROVIDERS: ATTEND Family Medicine
DX: M51.16 Intervertebral disc disorders with radiculopathy, lumbar region (principal); M47.27 Other spondylosis with radiculopathy, lumbosacral region
CPT/HCPCS: 72148

== ENCOUNTER → 2021-12-05 | Outpatient (CLI) | payer OTHER ==
--- NOTE | 2021-12-05 12:51 | US ---
EXAMINATION TYPE: US venous doppler duplex LE LT DATE OF EXAM: 12/05/2021 12:38 PM COMPARISON: Prior venous ultrasound January 03, 2020 CLINICAL HISTORY: R60.0 LOCALIZED EDEMA. Patient states doctor noticed redness. SIDE PERFORMED: Left TECHNIQUE: The lower extremity deep venous system is examined utilizing real time linear array sonog dana with graded compression, doppler sonography and color-flow sonography. VESSELS IMAGED: Common Femoral Vein Deep Femoral Vein Greater Saphenous Vein * Femoral Vein Popliteal Vein Small Saphenous Vein * Proximal Calf Veins (* superficial vessels) Left Leg: Negative for DVT Grayscale, color doppler, spectral doppler imaging performed of the deep veins of the left lower extr emity. There is normal flow, compressibility, vascular waveforms. IMPRESSION: No ultrasound evidence for acute DVT in the left lower extremity.
== END | disposition home or self-care (01) ==
LOC: RADUSWWP 12:19
PROVIDERS: ATTEND Family Medicine
DX: R60.0 Localized edema (principal)

== ENCOUNTER → 2022-01-07 | Outpatient (CLI) | payer OTHER ==
--- NOTE | 2022-01-08 12:55 | MM ---
Reason for exam: screening (asymptomatic). Last mammogram was performed 1 year and 5 months ago. History: Patient is postmenopausal and had first child at age 31. Family history of breast cancer in sister at age 53 and breast cancer in maternal aunt. Physical Findings: A clinical breast exam by your physician is recommended on an annual basis and results should be correlated with mammographic findings. MG 3D Screening Mammo W/Cad Bilateral CC and MLO view(s) were taken. Prior study comparison: August 16, 2020, bilateral MG 3d screening mammo w/cad. August 04, 2019, bilateral MG 3d screening mammo w/cad. The breast tissue is heterogeneously dense. This may lower the sensitivity of mammography. There is no discrete abnormality. ASSESSMENT: Negative, BI-RAD 1 RECOMMENDATION: Routine screening mammogram of both breasts in 1 year.
== END | disposition home or self-care (01) ==
LOC: RADMAMWWP 16:01
PROVIDERS: ATTEND Family Medicine
DX: Z12.31 Encounter for screening mammogram for malignant neoplasm of breast (principal); Z78.0 Asymptomatic menopausal state; Z80.3 Family history of malignant neoplasm of breast
CPT/HCPCS: 77063; 77067

== ENCOUNTER → 2022-02-06 | Outpatient (CLI) | payer OTHER ==
--- NOTE | 2022-02-07 02:41 | MR ---
EXAMINATION TYPE: MR hip RT wo con DATE OF EXAM: 02/06/2022 COMPARISON: None HISTORY: Right hip pain and limited movement for 1 year Multiplanar multiecho imaging of the pelvis and right hip without contrast. The pelvic ring is intact . Sacroiliac joints appear normal. There is bilateral hip joint effusions are larger on the right tyler e. There is no evidence of avascular necrosis of the femoral heads. There is 6 mm degenerative cyst i n the medial right femoral head. Acetabula appear intact. No fracture line. No free fluid in the pelv is. Bladder distends smoothly. No sign of a pelvic mass. No evidence of inguinal hernia. No evidence of a soft tissue mass. IMPRESSION: Degenerative cyst formation in the right femoral head. Bilateral hip joint effusions consistent with some synovitis. No fracture seen.
== END | disposition home or self-care (01) ==
LOC: RADMRIMAIN 17:03
PROVIDERS: ATTEND Family Medicine
DX: M85.651 Other cyst of bone, right thigh (principal)

== ENCOUNTER → 2022-10-08 | Outpatient (CLI) | payer OTHER ==
--- NOTE | 2022-10-08 17:07 | CT ---
EXAMINATION TYPE: CT soft tissue neck w con DATE OF EXAM: 10/08/2022 HISTORY: cough, sensation of something stuck in throat. Localize enlarged lymph nodes per order. COMPARISON: NONE CT DLP: 384.5 mGycm. Automated Exposure Control for Dose Reduction was Utilized. TECHNIQUE: CT scan of the neck is performed with IV Contrast, patient injected with 75cc mL of Isovu e 300, axial images are obtained, coronal and sagittal reformatted images are reviewed. FINDINGS: Airway: No gross abnormality seen. Parotid/submandibular glands: No gross abnormality seen. Carotid/Vascular Structures: No significant abnormality. Osseous Structures: Moderate spurring and disc space narrowing C4-C5 and C5-C6 levels. Posterior spur disc complexes efface the anterior thecal sac at these levels . Other: There is opacification and mucosal thickening involving the ethmoid sinuses bilaterally. Tiny dependent opacification or possible small cyst in the left sphenoid sinus axial image 75. The parapharyngeal fat spaces are maintained bilaterally. There are some scattered subcentimeter lymp h nodes throughout the neck bilaterally. No greater than 1 cm neck adenopathy is identified bilateral ly. IMPRESSION: No suspicious mass or adenopathy. Airway appears patent. Incidental paranasal sinus dise ase otherwise unremarkable study.
== END | disposition home or self-care (01) ==
LOC: RADCTMAIN 15:45
PROVIDERS: ATTEND Family Medicine
DX: R59.0 Localized enlarged lymph nodes (principal)
CPT/HCPCS: 70491; Q9967

== ENCOUNTER 2023-01-04 20:29 | Emergency (ER) | payer OTHER ==
[2023-01-04 20:40] VITALS: TEMP 98.3
[2023-01-04 20:57] LABS: Basophils % (A) 0 %; Eosinophils # (A) 0.7 k/uL (0-0.7); Eosinophils % (A) 8 %; HCT 41.4 % (34.0-46.0); HGB 14.4 gm/dL (11.4-16.0); Lymphocytes # (A) 1.8 k/uL (1.0-4.8); Lymphocytes % (A) 21 %; MCH 31.2 pg (25.0-35.0); MCHC 34.7 g/dL (31.0-37.0); Mean Platelet Volume 9.7; Monocytes # (A) 0.5 k/uL (0-1.0); Monocytes % (A) 6 %; Neutrophils # (A) 5.4 k/uL (1.3-7.7); Neutrophils % (A) 64 %; Platelet Count 249 k/uL (150-450); RDW 12.1 % (11.5-15.5); WBC 8.5 k/uL (3.8-10.6)
[2023-01-04 21:07] LABS: ALT 19 U/L (4-34); AST 25 U/L (14-36); African American GFR (CKD) >90 (>60 ml/min/1.73 sqM); Albumin 4.5 g/dL (3.5-5.0); Alkaline Phosphatase 67 U/L (38-126); Anion Gap 10 mmol/L; Blood Urea Nitrogen 14 mg/dL (7-17); Calcium 9.3 mg/dL (8.4-10.2); Carbon Dioxide 22 mmol/L (22-30); Chloride 105 mmol/L (98-107); Glucose 111 mg/dL (74-99); Non-African American GFR(CKD) >90 (>60 ml/min/1.73 sqM); Sodium 137 mmol/L (137-145); Total Bilirubin 0.2 mg/dL (0.2-1.3); Total Protein 7.2 g/dL (6.3-8.2)
[2023-01-04] MEDS ORDERED: ASPIRIN 81 MG PO STA (21:07)
[2023-01-04] MEDS ORDERED: LORazepam 0.5 MG TAB PO STA (21:07)
[2023-01-04 21:28] LABS: INR 0.9 (<1.2); Partial Thromboplastin Time 23.3 sec (22.0-30.0); Prothrombin Time 9.5 sec (9.0-12.0)
--- NOTE | 2023-01-04 21:43 | XR ---
EXAMINATION TYPE: XR chest 2V DATE OF EXAM: 01/04/2023 COMPARISON: NONE HISTORY: Chest pain. TECHNIQUE: Frontal and lateral views of the chest are obtained. FINDINGS: There is no suspicious focal air space opacity, pleural effusion, or pneumothorax seen. T he cardiac silhouette size is within normal limits. The osseous structures are intact. IMPRESSION: No acute process.
[2023-01-05 00:39] VITALS: BP 123/77; PULSE 61; RESP 15
--- NOTE | 2023-01-05 00:45 | ED ---
General Adult HPI - General Chief complaint: Chest Pain Stated complaint: Chest Pain Time Seen by Provider: 01/04/23 20:43 Source: patient, RN notes reviewed, old records reviewed Mode of arrival: ambulatory Limitations: no limitations - History of Present Illness Initial comments: Patient is a 57-year-old female with past medical history remarkable for "stress", insomnia, who presents emergency Department complaining of heart palpitations. States she has had a more stressful day throughout the day today with work. States that approximately 5:30 PM she began having heart palpitations as well as a strange sensation in her chest that she has a dif ficult time characterizing. States she feels well now, however still having a strange feeling shortly prior to arrival. Denies any shortness of breath. Denies any abdominal pain, nausea, vomiting. Denies any diarrhea, fevers, chills. Denies any cough. Has no other acute complaints at this time. No cardiac history. History of cardiac disease in family members. Presents for further evaluation at this time. No history of panic attacks. No history of anxiety, however states she is somewhat anxious at this time. - Related Data Home Medications Medication Instructions Recorded Confirmed Cholecalciferol (Vitamin D3) 5,000 unit PO DAILY 02/27/19 01/02/20 [Vitamin D3] Eszopiclone [Lunesta] 3 mg PO HS PRN 03/01/19 01/02/20 Linaclotide [Linzess] 290 mcg PO DAILY 03/01/19 01/02/20 Previous Rx's Medication Instructions Recorded LORazepam [Ativan] 0.5 mg PO DAILY PRN 3 Days #3 tab 01/05/23 Allergies Allergy/AdvReac Type Severity Reaction Status Date / Time No Known Allergies Allergy Verified 01/02/20 23:51 Review of Systems ROS Statement: Those systems with pertinent positive or pertinent negative responses have been documented in the HPI. Review of Systems: CONST: Denies fever EYES: Denies blurry vision ENT: Denies nasal congestion C/V: Endorses palpitations RESP: Denies shortness of breath GI: Denies abdominal pain : Denies dysuria SKIN: Denies rash. MSK: Denies joint pain. NEURO: Denies headache ROS Other: All systems not noted in ROS Statement are negative. Past Medical History Past Medical History: No Reported History Additional Past Medical History / Comment(s): constipation History of Any Multi-Drug Resistant Organisms: None Reported Past Surgical History: Orthopedic Surgery Additional Past Surgical History / Comment(s): vaginal sling 2003, rt ankle surgery with plate Past Anesthesia/Blood Transfusion Reactions: No Reported Reaction Past Psychological History: No Psychological Hx Reported Past Alcohol Use History: Occasional Past Drug Use History: None Reported - Past Family History Father Family Medical History: Liver Disease Additional Family Medical History / Comment(s): CROHNS, LIVER DISEASE. 05/2017 Mother Family Medical History: No Reported History Sister(s) Family Medical History: Cancer Additional Family Medical History / Comment(s): BREAST CANCER General Exam - General Exam Comments Initial Comments: General: Appears in no acute distress. Appears somewhat anxious. HEAD: Normal with no signs of head trauma. EYES: PERRLA, EOMI, conjunctiva normal, no discharge. ENT: Hearing grossly intact, normal oropharynx. RESPIRATORY: Clear breath sounds bilaterally. No wheezes, rales, or rhonchi. C/V: Regular rate and rhythm. S1 and S2 auscultated, , peripheral pulses 2+ and intact throughout ABD: Abd is soft, nontender, nondistended EXT: Normal range of motion, no obvious deformity SKIN: No rashes or lesions observed on exposed skin. NEURO: Alert and oriented 4. No focal deficits. Limitations: no limitations Course Vital Signs 01/04/23 01/04/23 01/05/23 20:37 22:17 00:00 Temperature 98.3 F Pulse Rate 86 68 61 Respiratory 16 16 15 Rate Blood Pressure 158/90 130/76 123/77 O2 Sat by Pulse 97 96 99 Oximetry Medical Decision Making - Medical Decision Making Was pt. sent in by a medical professional or institution (, PA, BIRD TENDER, urgent care, hospital, or fci...) When possible be specific @ -No Did you speak to anyone other than the patient for history (EMS, parent, family, police, friend...)? What history was obtained from this source @ -No Did you review nursing and triage notes (agree or disagree)? Why? @ -I reviewed and agree with nursing and triage notes Were old charts reviewed (outside hosp., previous admission, EMS record, old EKG, old radiological studies, urgent care reports/EKG's, fci records)? Report findings @ -No old charts were reviewed Differential Diagnosis (chest pain, altered mental status, abdominal pain women, abdominal pain men, vaginal bleeding, weakness, fever, dyspnea, syncope, headache, dizziness, GI bleed, back pain, seizure, CVA, palpatations, mental health, musculoskeletal)? @ -Differential Chest Pain: Stable Angina, Unstable Angina, STEMI, NSTEMI Aortic Dissection, Pneumothorax, Musculoskeletal, Esophageal Spasm GERD, Cholecystitis, Pancreatitis, Zoster, this is not meant to be an all-inclusive list. EKG interpreted by me (3pts min.). @ -As above X-rays interpreted by me (1pt min.). @ -Chest x-ray revealed no obvious cardiac process CT interpreted by me (1pt min.). @ -None done U/S interpreted by me (1pt. min.). @ -None done What testing was considered but not performed or refused? (CT, X-rays, U/S, labs)? Why? @ -None What meds were considered but not given or refused? Why? @ -None Did you discuss the management of the patient with other professionals (professionals i.e. , PA, BIRD TENDER, lab, RT, psych nurse, social security assessor, divorce lawyer, teacher, chief accounting officer, hospice case manager)? Give summary @ -No Was smoking cessation discussed for >3mins.? @ -No Was critical care preformed (if so, how long)? @ -No Were there social determinants of health that impacted care today? How? (Homelessness, low income, unemployed, alcoholism, drug addiction, transportation, low edu. Level, literacy, decrease access to med. care, half-way, rehab)? @ -No Was there de-escalation of care discussed even if they declined (Discuss DNR or withdrawal of care, Hospice)? DNR status @ -No What co-morbidities impacted this encounter? (DM, HTN, Smoking, COPD, CAD, Cancer, CVA, ARF, Chemo, Hep., AIDS, mental health diagnosis, sleep apnea, morbid obesity)? @ -None Was patient admitted / discharged? Hospital course, mention meds given and route, prescriptions, significant lab abnormalities, going to OR and other pertinent info. @ -Based on the patient's presentation and physical exam, I'm concerned for possible cardiopulmonary etiology for her current symptoms. He strongly suspect stress and anxiety playing a role. She'll be given 0.5 mg of oral Ativan as well as 324 mg of aspirin. Cardiopulmonary labs including screening d-dimer will be obtained. Chest x-ray and EKG will be obtained. Vital signs within acceptable limits. She was in agreement this plan. Chest x-ray showed no acute cardiopulmonary process. EKG within acceptable limits. Laboratory studies remarkable for a d-dimer within acceptable limits. Patient also had an initial undetectable troponin. Remainder of the labs are within acceptable limits. On reevaluation, I did recommend that we obtain a second troponin as it has been less than 3 hours after symptom onset for the first troponin. She is feeling asymptomatic at this time and much improved. She was in agreement this plan. Second troponin was undetectable. Patient remains asymptomatic on reevaluation. Discussed the specter distress and anxiety component to her palpitations she experienced. She'll be given a short-term course of Ativan, 3 tablets for home. Recommended follow up with their physician in the next 24-48 hours. She was in agreement this plan. Strict return precautions were discussed. We reviewed her workup today. I will provide the patient with a prescription for Ativan. I instructed the patient to follow up with their PCP in the next 1-3 days . I explained that the patient should return to the emergency department if they experience any worsening symptoms. Strict return precautions were discussed with the patient. The patient expressed understanding of these instructions. I answered all questions that the patient had. The patient was discharged home in good condition with their prescriptions and follow up information. Undiagnosed new problem with uncertain prognosis? @ -No Drug Therapy requiring intensive monitoring for toxicity (Heparin, Nitro, Insulin, Cardizem)? @ -No Were any procedures done? @ -No Diagnosis/symptom? @ -Heart palpitations Acute, or Chronic, or Acute on Chronic? @ -Acute Uncomplicated (without systemic symptoms) or Complicated (systemic symptoms)? @ -Uncomplicated Side effects of treatment? @ -No Exacerbation, Progression, or Severe Exacerbation? @ -No Poses a threat to life or bodily function? How? (Chest pain, [place], [place], pneumonia, PE, COPD, DKA, ARF, appy, cholecystitis, CVA, Diverticulitis, Homicidal, Suicidal, threat to staff... and all critical care pts) @ -No - Lab Data Result diagrams: 01/04/23 20:48 01/04/23 20:48 Lab Results 01/04/23 01/04/23 01/04/23 Range/Units 20:48 20:48 20:48 WBC 8.5 (3.8-10.6) k/uL RBC 4.60 (3.80-5.40) m/uL Hgb 14.4 (11.4-16.0) gm/dL Hct 41.4 (34.0-46.0) % MCV 90.0 (80.0-100.0) fL MCH 31.2 (25.0-35.0) pg MCHC 34.7 (31.0-37.0) g/dL RDW 12.1 (11.5-15.5) % Plt Count 249 (150-450) k/uL MPV 9.7 Neutrophils % 64 % Lymphocytes % 21 % Monocytes % 6 % Eosinophils % 8 % Basophils % 0 % Neutrophils # 5.4 (1.3-7.7) k/uL Lymphocytes # 1.8 (1.0-4.8) k/uL Monocytes # 0.5 (0-1.0) k/uL Eosinophils # 0.7 (0-0.7) k/uL Basophils # 0.0 (0-0.2) k/uL PT 9.5 (9.0-12.0) sec INR 0.9 (<1.2) APTT 23.3 (22.0-30.0) sec D-Dimer (<0.60) mg/L FEU Sodium 137 (137-145) mmol/L Potassium 4.0 (3.5-5.1) mmol/L Chloride 105 (98-107) mmol/L Carbon Dioxide 22 (22-30) mmol/L Anion Gap 10 mmol/L BUN 14 (7-17) mg/dL Creatinine 0.54 (0.52-1.04) mg/dL Est GFR (CKD-EPI)AfAm >90 (>60 ml/min/1.73 sqM) Est GFR (CKD-EPI)NonAf >90 (>60 ml/min/1.73 sqM) Glucose 111 H (74-99) mg/dL Calcium 9.3 (8.4-10.2) mg/dL Magnesium 2.0 (1.6-2.3) mg/dL Total Bilirubin 0.2 (0.2-1.3) mg/dL AST 25 (14-36) U/L ALT 19 (4-34) U/L Alkaline Phosphatase 67 (38-126) U/L Troponin I (0.000-0.034) ng/mL Total Protein 7.2 (6.3-8.2) g/dL Albumin 4.5 (3.5-5.0) g/dL 01/04/23 01/04/23 01/04/23 Range/Units 20:48 21:13 23:33 WBC (3.8-10.6) k/uL RBC (3.80-5.40) m/uL Hgb (11.4-16.0) gm/dL Hct (34.0-46.0) % MCV (80.0-100.0) fL MCH (25.0-35.0) pg MCHC (31.0-37.0) g/dL RDW (11.5-15.5) % Plt Count (150-450) k/uL MPV Neutrophils % % Lymphocytes % % Monocytes % % Eosinophils % % Basophils % % Neutrophils # (1.3-7.7) k/uL Lymphocytes # (1.0-4.8) k/uL Monocytes # (0-1.0) k/uL Eosinophils # (0-0.7) k/uL Basophils # (0-0.2) k/uL PT (9.0-12.0) sec INR (<1.2) APTT (22.0-30.0) sec D-Dimer 0.25 (<0.60) mg/L FEU Sodium (137-145) mmol/L Potassium (3.5-5.1) mmol/L Chloride (98-107) mmol/L Carbon Dioxide (22-30) mmol/L Anion Gap mmol/L BUN (7-17) mg/dL Creatinine (0.52-1.04) mg/dL Est GFR (CKD-EPI)AfAm (>60 ml/min/1.73 sqM) Est GFR (CKD-EPI)NonAf (>60 ml/min/1.73 sqM) Glucose (74-99) mg/dL Calcium (8.4-10.2) mg/dL Magnesium (1.6-2.3) mg/dL Total Bilirubin (0.2-1.3) mg/dL AST (14-36) U/L ALT (4-34) U/L Alkaline Phosphatase (38-126) U/L Troponin I <0.012 <0.012 (0.000-0.034) ng/mL Total Protein (6.3-8.2) g/dL Albumin (3.5-5.0) g/dL - EKG Data -: EKG Interpreted by Me EKG Comments: 12-lead Electrocardiogram Interpretation Note EKG was reviewed and interpreted by myself. 12-lead ECG performed at 2041 is in terpreted by me as revealing normal sinus rhythm at a rate of 76 beats per minute. [place] is normal. TN interval is 143 ms, QRS duration is 87 ms, QTc is 404 ms.. There were no ST or T wave abnormalities to suggest myocardial ischemia or injury. R wave progression across the precordium was satisfactory. By my interpretation this EKG is non-diagnostic for acute ischemia. Disposition Clinical Impression: Heart palpitations Disposition: HOME SELF-CARE Condition: Good Instructions (If sedation given, give patient instructions): Heart Palpitations (ED) Prescriptions: LORazepam [Ativan] 0.5 mg PO DAILY PRN 3 Days #3 tab PRN Reason: Anxiety Is patient prescribed a controlled substance at d/c from ED?: Yes When asked, does pt state using other controlled substances?: Yes If prescribed controlled substance>3 days was MAPS reviewed?: Prescribed <3 Days Referrals: Jas Mcfarland DO [Primary Care Provider] - 1-2 days Time of Disposition: 00:40
== END 2023-01-05 01:01 | disposition home or self-care (01) ==
LOC: EC 20:29
DX: R00.2 Palpitations (principal)
CPT/HCPCS: 36415; 71046; 80053; 83735; 84484; 85025; 85379; 85610; 85730; 93005; 99285

== ENCOUNTER → 2023-09-09 | Outpatient (CLI) | payer OTHER ==
--- NOTE | 2023-09-09 10:36 | CT ---
EXAMINATION TYPE: CT brain wo con CT DLP: 1169.70 mGycm, Automated exposure control for dose reduction was used. DATE OF EXAM: 09/09/2023 7:58 AM COMPARISON: None. CLINICAL INDICATION:Female, 57 years old with history of R51.9 HEADACHE, Chronic headaches x3-4 month s, tongue tingling TECHNIQUE: Brain: Axial CT images of the brain were obtained with coronal and sagittal reformats created and rev iewed. Contrast used: None. Oral contrast used: None. FINDINGS: Brain: Extra-axial spaces: No abnormal extra-axial fluid collections. Ventricular system: Within normal limits Cerebral parenchyma: Asymmetric subtle right-sided white matter changes frontal lobe. No acute intrap arenchymal hemorrhage or mass effect. The ramos-white junction is well differentiated. Cerebellum: Unremarkable. Mass effect: No evidence of midline shift. Intracranial vasculature: Atherosclerotic calcifications of the intracranial vessels. Soft tissues: Normal. Calvarium/osseous structures: No depressed skull fracture. Paranasal sinuses and mastoid air cells: Mild scattered paranasal sinus disease. Visualized orbits: Orbital contents are intact. IMPRESSION: Nonspecific right-sided white matter changes. Consider further evaluation with MRI. No evidence for a cute/subacute CVA.
== END | disposition home or self-care (01) ==
LOC: RADCTMAIN 07:36
PROVIDERS: ATTEND Family Medicine
DX: R90.82 White matter disease, unspecified (principal); R51.9 Headache, unspecified
CPT/HCPCS: 70450

== ENCOUNTER → 2023-09-24 | Outpatient (CLI) | payer OTHER ==
--- NOTE | 2023-09-24 21:50 | MR ---
EXAMINATION TYPE: MR brain wo/w con DATE OF EXAM: 09/24/2023 COMPARISON: CT brain 09/09/2023 HISTORY: Headaches, Tingling of tongue CONTRAST: Performed utilizing 8.5 mL intravenous Gadavist gadolinium contrast. TECHNIQUE: Multiplanar, multiecho imaging on a 3.0 Pebbles magnet is performed through the brain. Stud y is performed within 24 hours of arrival to the hospital. The craniovertebral junction is normal. The pituitary is normal. Diffusion-weighted imaging is performed. No abnormal hyperintensity is present to suggest an acute i ntracranial infarct or acute ischemic change. There are scattered punctate areas of hyperintensity on T2 and Inversion Recovery weighted sequences which are non-specific but can be related to microvascular ischemic changes. The more focal areas of white matter change in the right centrum semiovale correlate with the CT findings. Ventricles and sulci are appropriate for the patient age. Postcontrast imaging is performed. No suspicious enhancement is evident. IMPRESSION: 1. No acute intracranial processes pre and postcontrast MRI brain. 2. Chronic appearing scattered white matter ischemic type changes. Differential diagnosis could inclu de multiple sclerosis, vasculitis, migraine headaches.
== END | disposition home or self-care (01) ==
LOC: RADMRIMAIN 17:30
PROVIDERS: ATTEND Family Medicine
DX: I67.82 Cerebral ischemia (principal); K14.8 Other diseases of tongue; R51.9 Headache, unspecified
CPT/HCPCS: 70553; A9585

== ENCOUNTER → 2024-08-17 | Outpatient (CLI) | payer OTHER ==
--- NOTE | 2024-08-21 10:42 | MM ---
Reason for Exam: Screening (asymptomatic). Last mammogram was performed 2 year(s) and 8 month(s) ago. Patient History: Menarche at age 11. First Full-Term at age 31. Late child-bearing (after 30). Postmenopausal. Currently using Progesterone. Maternal aunt had breast cancer. Sister had breast cancer, age 53. Risk Values: Karoline 5 year model risk: 2.9%. NCI Lifetime model risk: 14.3%. Prior Study Comparison: 08/04/2019 Bilateral Screening Mammogram, [facility]. 08/16/2020 Bilateral Screening Mammogram, [facility]. 01/07/2022 Bilateral Screening Mammogram, [facility]. Tissue Density: The breasts are heterogeneously dense, which may obscure small masses. Findings: Analyzed By CAD. Right breast: There is no suspicious group of microcalcifications or new suspicious mass. Left breast: There is no suspicious group of microcalcifications or new suspicious mass. Overall Assessment: Negative, BI-RAD 1 Management: Screening Mammogram of both breasts in [address] [facility] will attempt to contact patient to return for supplemental views and ultrasound if indicated. Patient should continue monthly self-breast exams. A clinical breast exam by your physician is recommended on an annual basis. This exam should not preclude additional follow-up of suspicious palpable abnormalities. Note on Karoline scores and lifetime risk: 1. A Karoline score greater than 3% is considered moderate risk. If this is the case, consider specialist referral to assess eligibility for a risk reducing agent. 2. If overall lifetime risk for the development of breast cancer is 20% or higher, the patient may qualify for future screening with alternating mammogram and breast MRI. [facility], , 08/21/2024 10:39 AM. Electronically signed and approved by: Hank Salvador DO
== END | disposition home or self-care (01) ==
LOC: RADMAMWWP 16:02
PROVIDERS: ATTEND Family Medicine
DX: Z12.31 Encounter for screening mammogram for malignant neoplasm of breast (principal); Z78.0 Asymptomatic menopausal state; Z80.3 Family history of malignant neoplasm of breast; R92.333 Mammographic heterogeneous density, bilateral breasts
CPT/HCPCS: 77063; 77067